=== PATIENT | female | born 1940 | race Two or more races ===

== ENCOUNTER 2022-09-28 08:39 | Outpatient (CLI) | payer MEDICARE | END 2022-09-28 23:59 | disposition home or self-care (01) | LOC: LAB 08:39 → EDBD 08:39 → LAB 23:59 | PROVIDERS: ATTEND Specialist | DX: Z01.812 Encounter for preprocedural laboratory examination (principal); Z20.822 Contact with and (suspected) exposure to COVID-19 | CPT/HCPCS: U0003; C9803 ==

== ENCOUNTER 2022-10-04 05:17 | Inpatient (IN) | payer MEDICARE, OTHER ==
[~2022-10-04] VITALS: Ht 162.6 cm; Wt 71.3 kg
[2022-10-04 05:45] VITALS: BP 152/76
[2022-10-04] MEDS ORDERED: FENTANYL PF 250MCG/5ML AMPUL ONE (05:47)
[2022-10-04] MEDS ORDERED: HYDROMORPHONE INJ 2 MG/ML DISP.SYRIN ONE (05:48)
[2022-10-04] MEDS ORDERED: MIDAZOLAM HCL 2 MG/2ML VIAL ONE (05:48)
[2022-10-04] MEDS ORDERED: FAMOTIDINE/PF INJ 20 MG/2 ML VIAL IV ONE (05:49)
[2022-10-04] MEDS ORDERED: ROCURONIUM BROMIDE 50 MG/5 ML ONE (05:49)
[2022-10-04] MEDS ORDERED: BUPIVACAINE 0.5 % PF 150 MG/30 ML VIAL ONE ×2 (05:49→06:09)
[2022-10-04] MEDS ORDERED: POLYMYXIN B SULFATE 500,000 UNITS ONE (06:09)
[2022-10-04] MEDS ORDERED: TRANEXAMIC ACID 3,000 MG in SODIUM CHLORIDE IRRIG SOLUTION 70 ML IR ONE (06:30)
[2022-10-04] MEDS ORDERED: MAGN400T26 PO (07:42)
[2022-10-04] MEDS ORDERED: ATOR10TA PO (07:42)
[2022-10-04] MEDS ORDERED: LISI1TAB55 PO (07:42)
[2022-10-04] MEDS ORDERED: DULA1.5P PO (07:42)
[2022-10-04] MEDS ORDERED: METO200T49 PO (07:42)
[2022-10-04] MEDS ORDERED: AMLO-212 PO (07:42)
--- NOTE | 2022-10-04 07:55 | NUR ---
[facility] INITIAL AND CLOSING NOTES PT RECEIVED DAY SURGERY PATIENT. SHE'S ALERT ORIENTED , UKRAINIAN SPEAKING WITH HER FAMILY AT THE BEDSIDE HER SIGNAL WORKER. ADMITTED HER AND ALL SURGERY CONSENT SIGNED BY THE PT ITSELF . PICKED UP BY OR NURSE AND TECH. ENDORSE TO AM NURSE FOR CONTINUITY OF CARE.
--- NOTE | 2022-10-04 08:02 | NUR ---
RN OPENING NOTES PATIENT AT OPERATING ROOM
[2022-10-04] MEDS ORDERED: NALOXONE HCL 0.4 MG/ML AMPUL ONE (09:53)
[2022-10-04] MEDS ORDERED: ACETAMINOPHEN 325 MG TABLET PO PRN ×2 (10:30)
[2022-10-04] MEDS ORDERED: ZOLPIDEM TARTRATE 5 MG TABLET PO PRN (10:30)
[2022-10-04] MEDS ORDERED: HYDROCODONE/APAP 5/325MG TABLET PO PRN (10:30)
[2022-10-04] MEDS ORDERED: BISACODYL SUPP (10 MG) 10 MG/SUPP.RECT SUPP.RECT RC PRN (10:30)
[2022-10-04] MEDS ORDERED: DOCUSATE SODIUM 250 MG CAPSULE PO PRN (10:30)
[2022-10-04] MEDS ORDERED: ONDANSETRON HCL/PF 4 MG/2 ML VIAL IV PRN (10:30)
[2022-10-04] MEDS ORDERED: SENNOSIDES 8.6 MG TABLET PO PRN (10:30)
[2022-10-04] MEDS: IV D5/0.45 NACL 1,000 ML IV PRN (12:10)
--- NOTE | 2022-10-04 14:06 | NUR ---
RN NOTES RECEIVED PATIENT FROM OR STATUS POST TOTAL REVISION OF LEFT SHOULDER ARTHROPLASTY. WITH STABLE VITAL SIGNS BP: 125/69, RR:20, VA:98, TEMP: 98. WITH IV ACCESS AT LEFT HAND #20G AND STARTED IVF D5 1/2 NS AT 25 CC/HR. SIDE RAILS UP X 3 AT ALL TIMES. SAFETY PRECAUTIONS MAINTAINED. WILL CONTINUE TO MONITOR Addendum: 10/04/22 at 1416 by Heather Gloria RN RN NOTES ON OXYGEN VIA NASAL CANNULA AT 4 LPM. NO DIFFICULTY OF BREATHING NOTED. Addendum: 10/04/22 at 1418 by Heather Gloria RN RN NOTES ON TELEMONITOR CURRENTLY READING SINUS TACHYCARDIA AT 104 BPM. WILL CONTINUE TO MONITOR.
[2022-10-04] MEDS: ANCEF 1 GM/50 ML D5W IV SCH ×4 (14:45→22:56)
[2022-10-04 16:00] VITALS: BP 126/75
[2022-10-04] MEDS ORDERED: oxyCODONE IR immediate release 5 MG PO PRN (17:00)
[2022-10-04] MEDS ORDERED: HYDROMORPHONE 1 MG/1 ML DISP.SYRIN IV PRN (17:00)
[2022-10-04] MEDS: ATORVASTATIN 10 MG TABLET PO SCH ×3 (17:26→17:38)
[2022-10-04] MEDS ORDERED: METOPROLOL SUCCINATE 50 MG TAB.SR.24H PO SCH (18:00)
--- NOTE | 2022-10-04 18:15 | NUR ---
RN CLOSING NOTES PATIENT AT BED ASLEEP. ABLE TO VERBALIZED CONCERNS. WITH IV ACCESS AT LEFT HAND #20G AND STARTED IVF D5 1/2 NS AT 25 CC/HR. NO SIGNS OF PAIN AND DISCOMFORT AT THIS TIME SIDE RAILS UP X 3 AT ALL TIMES. SAFETY PRECAUTIONS MAINTAINED. WILL ENDORSED PATIENT TO LICENSED PROFESSIONAL COUNSELOR
[2022-10-04] MEDS ORDERED: MENTHOL/CETYLPYRD (CEPACOL) 1 LOZ LOZENGE PO ONE (18:27)
[2022-10-04] MEDS ORDERED: diphenhydrAMINE HCL 25 MG CAPSULE PO PRN (18:30)
[2022-10-04] MEDS ORDERED: MENTHOL/CETYLPYRD (CEPACOL) 1 LOZ LOZENGE PO PRN (18:30)
[2022-10-04] MEDS ORDERED: MAG HYDROX/AL HYDROX/SIMETH 30 ML UDC PO PRN (18:30)
--- NOTE | 2022-10-04 19:30 | NUR ---
TELERN FALLING ASLEEP, EASILY AWAKENED WHEN CALLED. DENIES ANY PAIN WAS SEEN BY DR. BRENNAN THIS EVENING, ORDERS RECEIVED. SR TO ST ON THE MONITOR. CONTINUED MONITORING. PRESENT IVF INFUSING WELL.
[2022-10-04 20:00] VITALS: BP 101/63
--- NOTE | 2022-10-04 20:00 | NUR ---
TELERN FAMILY AT BEDSIDE. INSTRUCTED USE OF INCENTIVE SPIROMETRY, TRANSLATED BY FAMILY IN MONGOLIAN, APPEARS TO UNDERSTAND. DID RETURN DEMO, ABLE TO USE INCENTIVE SPIROMETRY. DISCUSSED WITH PATIENT AND FAMILY PLAN OF CARE AND MEDICATION REGIMEN. AGAIN TRANSLATED BY FAMILY IN MONGOLIAN TO PATIENT. STILL PATIENT DENIES ANY TYPE OF PAIN, S/P REVISION OF RIGHT SHOULDER EARLIER TODAY. DRESSING DRY AND INTACT. REMINDED TO CALL STAFF FOR ANY ASSISTANCE OR FURTHER DISCOMFORTS.CALL LIGHT USE REVIEWED WITH PATIENT. WELL UNDERSTOOD. CLOSELY WATCHED.
[2022-10-04] MEDS: FAMOTIDINE (20 MG) 20 MG TABLET PO SCH (21:39)
--- NOTE | 2022-10-05 00:29 | NUR ---
TELERN REMAINS UNCHANGED, OFFERED BSC NO URGE YET TO URINATE.
[2022-10-05 00:54] VITALS: BP 102/62
[2022-10-05] MEDS: IV D5/0.45 NACL 1,000 ML IV PRN (01:16)
--- NOTE | 2022-10-05 03:25 | NUR ---
TELERN ASSESSED FOR POST OP PAIN, STATES NOT MUCH OF PAIN. OFFERED PAIN MED, DECLINED. IVF CONTINUED.
[2022-10-05 04:21] VITALS: BP 111/62
--- NOTE | 2022-10-05 07:00 | NUR ---
TELERN REMAINS SR ON THE MONITOR, CONTINUED MONITORING
--- NOTE | 2022-10-05 07:25 | NUR ---
TELECOM ANALYST OPENING NOTES PATIENT AWAKE IN BED. A/OX4 AND ABLE TO MAKE NEEDS KNOWN. PATIENT IS LUXEMBOURGISH SPEAKING BUT UNDERSTANDS MACEDONIAN. PT SON AT BEDSIDE. PATIENT IS ON NC WITH 3L OF 02 RUNNING. NO SIGNS OF SOB OR RFESPIRATORY DISTRESS NOTED. ON TELE MONITOR READING SR AND HR 85 BPM. SLING ON RIGHT RIGHT ARM FROM SURGERY, REPORTING MILD PAIN. PATIENT REFUSES PAIN MEDS AND REPOSITIONING. IV ACCESS ON RIGHT HAND #20 WITH D5 1/2 RUNNING AT 125/HR. NO SWELLING, PAIN OR SIGNS OF INFILTRATION. SAFETY PRECAUTIONS IN PLACE WITH BED IN LOWEST LOCKED POSITION, SIDE RAILS UP X2, TRAY AND CALL LIGHT WITHIN REACH. WILL CONTINUE TO MONITOR.
[2022-10-05 08:00] VITALS: BP 111/60
[2022-10-05 09:00] VITALS: BP 103/57
[2022-10-05] MEDS ORDERED: ASPIRIN 325 MG TABLET PO SCH (09:00)
[2022-10-05] MEDS ORDERED: AMLODIPINE BESYLATE 5 MG TABLET PO SCH (09:00)
[2022-10-05] MEDS ORDERED: LISINOPRIL (20MG) 20 MG TABLET PO SCH (09:00)
[2022-10-05] MEDS ORDERED: HYDROCHLOROTHIAZIDE 25 MG TABLET PO SCH (09:00)
[2022-10-05] MEDS: FAMOTIDINE (20 MG) 20 MG TABLET PO SCH (09:06)
--- NOTE | 2022-10-05 11:26 | NUR ---
SS consult: SS Consult requested for safe discharge planning. The pt. is 82-year-old female admitted to [facility] for shoulder arthroplasty. LAQUITA met with pt. at bedside and her daughter, Danielle Tian [phone] is at bedside and pt. is agreeable to be interviewed with daughter in the room. The pt. is alert & oriented x 4 and makes good eye contact. The pt. appears well-groomed. The pt. has euthymic mood & affect. Pt. denies SI/HI and denies hallucinations. Per pt. she resides at home [[address] [address] TEL: [phone]] with her daughter, Danielle Tian [phone] and son, Reid Tian [phone] and would like to return there once ready for discharge. Pt. states her shoulder has been bothering her for a long time and she is glad she finally got the surgery she needed. SW used active listening. LAQUITA provided pt. with senior resources including for transportation, meal delivery, DME, insurance assistance etc. Pt. states she has Medi-Mackenzie and is interested in applying for [employer]. LAQUITA provided pt. with IHSS application and brochure on ways to submit application. Daughter stated she will help pt. with application. Pt. was receptive and stated she will use resources as needed. Pt. denies any history of mental illness. Per pt. she ambulates independently and may need some assistance with ADLs like cooking. Per pt. she receives SSI. DC Plan: Per pt. he would like to return home [[address] [place] [address] TEL: [phone]] with her daughter, Danielle Tian [phone]. LAQUITA discussed DC plan with Jihan REYNOSO who confirmed DC plan is for pt. to go home. Pt. states her daughter, Agueda High tel: [phone] may be able to pick her up at 7 if she is DC today. Noted. LAQUITA provided pt. with the follow senior resources and pt. accepted them: ABUSE PREVENTION: ELDER ABUSE HOTLINE (04/04) ADULT PROTECTIVE SERVICES [facility] AREA ON AGING (HOTLINE) ADULT DAY HEALTH CARE CARE CENTERS: Private pay or Medi-mackenzie funded adult day care [place] [facility] , [facility] , [facility] , [facility] , [facility] Adult [facility] Health Care , [facility] Adult Daycare Center , [place] [facility] , [facility] , [place] ALZHEIMERS DISEASE/DEMENTIA: Alzheimers Association Helpline [facility] www.alz.org/[facility] Department of Aging www.lacity.org Family Caregiver [place] www.caregiver.org [place] Caregiver Resources Center/Family Support www.[facility].org CANCER RESOURCES: [place] Cancer Society www.cancer.org Cancer Support Community www.CancerSupportVvsb.org: CancerCare www.cancercare.org [facility] Cancer Support Center www.[facility].org COMMUNITY HEALTH ASSOCIATIONS: AARP www.aarp.org ALS Association (ask for Archana) www.als.org [place] Diabetes Association www.diabetes.org [place] Heart Association www.heart.org [place] Lung Association www.lungusa.org [place] Parkinson Disease Association www.apdaparkinson.org [place] Ogilvie , www.redcross.org Arthritis Foundation www.arthritis.org Crohns & Colitis Foundation of [place] www.ccfa.org/chapters/leticia National Multiple Sclerosis Society www.nationalmssociety.org Myasthenia Gravis Foundation www.myasthenia-ca.org National Stroke Association www.stroke.org CONSERVATORSHIP & GUARDIANSHIP: AARP Vicky Romero Legal Services Center for Health Care Rights Eldercare Information and Referral Bulb Farmworker [facility] Emergency Department [facility]: [facility] Referral Service [facility] Legal Services Office of the Public Guardian [place] EYESIGHT DISORDER RESOURCES: [place] Macular Degeneration Foundation [facility] www.lutheran hospitalinstitjackson.org GRIEF AND BEREAVEMENT RESOURCES: The [place] , [facility] THE [place] Connection , [facility] Bereavement Center , [place] HEARING DISORDER RESOURCES: [place] Telephone Access Program Deaf and Disabled Telecommunications Program www.ddtp.cpu.ca.gov HearRx Hearing Centers ([place]) Better Hearing Systems , [place] GLAD ([facility] Agency on Deafness) V/ TTY; Fusion Analyst , [facility] Hearing [facility] Emergency Department -low income hearing aid assistance www.Evento Social Promotionhearingfoundation.org [place] [facility] , Alfredo HELP AT HOME CAREGIVER SUPPORT: In Home Support Services (Must have Medi-Mackenzie to be eligible) *Ask for a list of agencies that provide services to assist with care in the home. Local Senior Centers also have listings of care providers. HOME SAFETY MODIFICATIONS AND EQUIPMENT: Senior centers have additional referrals. ID RNA Networks and Hangtime Dept. Handyworker Program (low income) or Visit http://hcidla.[facility].org/yti-kkkelz-xe for more information National Seating and Mobility and/or ; Forever Active www.foreveriKaaz.Vicci Mobile Merch Stay Home Safe www.Stayhomesafe.com LIFE ALERT RESPONSE SYSTEM: Terralliance Services 724-277-7136 www. OMsignal Life Alert 222-344-1993 www.Twice Life Station 120-768-5272 www.ikaSystemsation.Vicci Mobile Merch Safe Return 912-190-7384 www.alz.or/safereturn Cell Phones for Seniors www.Estorian MEALS AND FOOD PROGRAMS: [place] Meals on Wheels [phone] [place] Meals on Wheels [phone] [facility] [phone] [place] to the Homebound [phone] [place] to the Homebound [phone] [facility] to the Homebound [phone] [facility] to the Homebound [phone] Mauricio Santiago [phone] Norberto Miguel Ángel [place] [phone] ONE Generation [phone] [facility] [phone] BrowneVan Wert County Hospitalur[facility]led[facility] [phone] Meals on Wheels [phone] For all ages: $6.85/ meal w side. Delivered M-F from 10 am-1pm. Application and payment is done over the phone. Frozen meals available for weekends. Emergency Food Coalition [phone] [facility] Pneumatic Tool Repairer [phone] [facility] [phone] [facility] Outreach- Brown bag lunches [phone] CAMERONALEKSANDAR [facility] [phone] MEAL/GROCERY DELIVERY PROGRAMS: Alla [facility] Gourmet Meals [phone]- [facility] [phone]- [facility] Magic Kitchen [phone] Moms Meals [phone] (ask Mercado for Discount Select grocery stores may provide delivery. MEDICAL INSURANCE SUPPORT SERVICES: Center for Health Care Rights [phone] Health Insurance Counseling/Advocacy Programs (HICAP)-Must have Medicare. Offers counseling for Medi-Mackenzie eligibility [phone] [facility] Pneumatic Tool Repairer [phone] www.[facility].ca.gov Medicare 440-132-9676 www.socialsecurity.org Social Security [phone] SENIOR ACTIVITY PROGRAMS: *Contact a local senior center, adult school, recreation facility or community college for education, fitness, recreation, and social programs. Aquatic Therapy and Adapted Exercise programs through [facility] [phone] [facility] [phone] www.[facility]/encore H2U- Senior Friends [phone] Brenda Senior Programs [phone] www.oasisnet.org Suddenly 65 www..com SENIOR CENTERS: [facility] Center [phone] [facility] Hospital[facility] [phone] [facility] [phone] [facility] [phone] [facility] [phone] [facility] [phone] [facility] [phone] [facility] [phone] One Generation, Reseda [facility] [phone] [facility] [phone] [facility] [phone] [facility] [phone] [facility] [phone] TRANSPORTATION: Local [facility] may have applications for transportation programs and additional resources. ACCESS Services [phone] Transportation for seniors and disabled persons 7 days a week requiring 254 hr. advance reservation. Must apply and register for program gabriela eligible. MicroJob [phone] or [phone] Transportation for seniors and persons with ADA card/metro disabled card in the [facility]. M-F only. Must register for services. ONE GENERATION [phone] Serves 65 years + in conjunction with [employer] ([place]ENZHEN)e program. Must be registered with both programs. A to B Transport [phone] Provides wheelchair/gurney van service. Adult Medical Transport [phone] Accepts [facility] with prior authorization. Care Van [phone] Provides wheelchair Transport. [facility] Wide Transportation [phone] Provides gurney service [facility] [phone] Gurney Transport. [facility] Town Transportation [phone] wheelchair & gurney transport [facility] Transportation [phone] wheelchair & gurney transport [place] Non-Emergency Transport [phone] wheelchair & gurney transport [facility] Living [place] [phone] Short Term Transportation primarily for adults with disabilities on social security income. Nominal fee may apply and a reservation is required. [facility] Cab [phone] or [phone] [facility] [phone] [place] [address] Referral Services -[phone] For additional programs & services VETERANS RESOURCES: Submissions for Aid and Attendance should be done directly to Federal VA office locatd at : [address] [facility] [phone] [phone] National Caregiver Support Line [phone] Mackenzie Lem[facility] Field Office [phone] [place] Department of Affairs [phone] Pension Information [phone]
--- NOTE | 2022-10-05 12:40 | NUR ---
OFFICE MACHINE REPAIR SHOP SUPERVISORQUALITY ASSURANCE SUPERVISOR TRIM NOTE PT DISCHARGED HOME IN STABLE CONDITIONS. PT A/OX4 HUNGARIAN SPEAKING, ABLE TO MAKE NEEDS KNOWN. ON ROOM AIR WITH SPO2 AT 99%. NO SOB OR RESPIRATORY DISTRESS NOTED. LAST TELE READING WAS SINUS RHYTHM WITH HR AT 81BPM. VITAL SIGNS TAKEN, STABLE, AND RECORDED. PTS SKIN IN TACT. PT DENIES PAIN OR DISCOMFORT AT THIS TIME. ALL BELONGINGS ACCOUNTED FOR AND WITNESSED BY PLANING MACHINE OPERATOR. DISCHARGE INSTRUCTIONS RELAYED TO DAUGHTER AND PATIENT. MEDS RECONCILED. IV ACCESS REMOVED WITH NO ACTIVE BLEEDING NOTED. PT LEFT THE UNIT ACCOMPANIED BY DAUGHTER AND PLANING MACHINE OPERATOR IN STABLE CONDITION. IV ACCESS AND ID BRACELET REMOVED.
== END 2022-10-05 12:20 | disposition home or self-care (01) | DRG 483 ==
LOC: DS 05:17 → MED 05:19 → TELE 19:41
PROVIDERS: ADMIT Internal Medicine; ATTEND Nurse Practitioner Acute Care
PROC: 0RRJ00Z Replacement of Right Shoulder Joint with Reverse Ball and Socket Synthetic Substitute, Open Approach (ICD-10-PCS; principal; 2022-10-04)
PROC: 0LS30ZZ Reposition Right Upper Arm Tendon, Open Approach (ICD-10-PCS; 2022-10-04)
DX: M75.101 Unspecified rotator cuff tear or rupture of right shoulder, not specified as traumatic (principal); Z20.822 Contact with and (suspected) exposure to COVID-19; K21.9 Gastro-esophageal reflux disease without esophagitis; M19.011 Primary osteoarthritis, right shoulder; E11.9 Type 2 diabetes mellitus without complications; E78.5 Hyperlipidemia, unspecified; I10 Essential (primary) hypertension; E66.9 Obesity, unspecified; Z68.27 Body mass index [BMI] 27.0-27.9, adult; Z86.79 Personal history of other diseases of the circulatory system
CPT/HCPCS: 71045-TC; 82962-TC; 87081-TC; 88305-TC; 88311-TC; A4217; A4565; A6209; C1776; G0378; J0690; J1170; J2250; J2310; J2405; J2704; J2765; J3010; J3490; J7030; J7060